=== PATIENT | female | born 1985 | race Caucasian/White ===

== ENCOUNTER 2019-03-20 03:35 | Emergency (ER) | payer MEDICAID ==
[2019-03-20] MEDS ORDERED: NS 1,000 ML IV ONE (03:51)
[2019-03-20] MEDS ORDERED: ONDANSETRON 4 MG/2 ML VIAL IVP ONE ×2 (03:51→05:41)
[2019-03-20] MEDS ORDERED: HYDROmorphONE/DILAUDID 2 MG/ML INJ IVP ONE (03:51)
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
[2019-03-20 04:01] LABS: PLATELET COUNT 268 10^3/uL (150-400)
[2019-03-20] MEDS ORDERED: IOPAMIDOL (ISOVUE 370) 100 ML BTL IV ONE (04:06)
[2019-03-20] MEDS ORDERED: ONDANSETRON 4 MG/2 ML VIAL ONE (05:37)
[2019-03-20] MEDS ORDERED: KETOROLAC 15 MG/1 ML SDV IVP ONE (06:18)
[2019-03-20] MEDS ORDERED: DEXAMETHASONE 10 MG/ML VIAL IVP ONE (06:18)
[2019-03-20] MEDS ORDERED: ONDANSETRON DISINTEGRATING 4 MG TAB PO ONE (07:15)
--- NOTE | 2019-03-20 07:23 | CPEKG ---
Test Reason : OPEN Blood Pressure : / mmHG Vent. Rate : 063 BPM Atrial Rate : 063 BPM P-R Int : 167 ms QRS Dur : 086 ms QT Int : 431 ms P-R-T Axes : 079 090 059 degrees QTc Int : 442 ms Sinus rhythm Borderline right axis deviation Confirmed by Rohan Gresham ([id number]) on 03/20/2019 7:22:38 AM Referred By: Rohan Gresham Confirmed By:Rohan Gresham
[2019-03-20 07:28] VITALS: BP 105/64
== END 2019-03-20 07:26 | disposition home or self-care (01) ==
LOC: EDUNIT#
DX: M54.2 Cervicalgia (principal)
CPT/HCPCS: 96374; J1100; J1170; J1885; J2405; Q9967